=== PATIENT | female | born 1980 | race Caucasian/White ===

== ENCOUNTER 2016-12-30 21:46 | Emergency (ER) | payer BC ==
[~2016-12-30] VITALS: Ht 162.6 cm; Wt 61.7 kg
[2016-12-30] MEDS ORDERED: ZOLP10TA2 PO (22:03)
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
--- NOTE | 2016-12-30 23:45 | NUR ---
Pt stable for discharge per MD. Pt given ACI. Pt verbalized understanding of dc instructions. 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
[2016-12-30 23:58] VITALS: BP 113/67
== END 2016-12-30 23:45 | disposition home or self-care (01) ==
LOC: ER 21:49
DX: I80.9 Phlebitis and thrombophlebitis of unspecified site (principal); F10.20 Alcohol dependence, uncomplicated
CPT/HCPCS: A4663